=== PATIENT | male | born 1990 ===

== ENCOUNTER 2017-04-25 06:18 | Emergency (ER) | payer OTHER ==
[2017-04-25 06:18] VITALS: BMI 38.3
[2017-04-25 06:22] VITALS: BP 127/79; PULSE 113; RESP 16; TEMP 97.8; O2SAT 100
--- NOTE | 2017-04-25 07:33 | ED PDOC ---
HPI: General Adult Time Seen by Provider: 04/25/17 06:40 Chief Complaint (Nursing): Abnormal Skin Integrity Chief Complaint (Provider): Right pinky finger injury History Per: Patient History/Exam Limitations: no limitations Onset/Duration Of Symptoms: Hrs Additional Complaint(s): Patient is a 26 y/o male with no past medical history who presents to the ED complaining of right pinky finger injury. Patient reports he cut his finger last night at 22:00 (over 10 hours ago). Patient states he was drinking and cut his finger on the fridge. He currently denies any pain or bleeding. Past Medical History Reviewed: Historical Data, Nursing Documentation, Vital Signs Vital Signs: Last Vital Signs Temp 97.8 F 04/25/17 06:20 Pulse 113 H 04/25/17 06:20 Resp 16 04/25/17 06:20 BP 127/79 04/25/17 06:20 Pulse Ox 100 04/25/17 07:39 - Medical History PMH: Gall Bladder Disease - Surgical History Surgical History: No Surg Hx - Family History Family History: States: Unknown Family Hx - Social History Current smoker - smoking cessation education provided: Yes (< 10 cigarettes daily) Alcohol: Social Drugs: Denies - Home Medications Home Medications: Ambulatory Orders Medication Instructions Recorded Cephalexin [Keflex] 500 mg PO QID #28 capsule 04/25/17 - Allergies Allergies/Adverse Reactions: Allergies Allergy/AdvReac Type Severity Reaction Status Date / Time No Known Allergies Allergy Verified 05/23/16 11:20 Review of Systems ROS Statement: Except As Marked, All Systems Reviewed And Found Negative Musculoskeletal: Negative for: Other (pain/bleeding of right pinky finger) Skin: Positive for: Other (cut to right pinky finger) Physical Exam - Reviewed Nursing Documentation Reviewed: Yes Vital Signs Reviewed: Yes - Physical Exam Appears: Positive for: No Acute Distress Head Exam: Positive for: ATRAUMATIC, NORMOCEPHALIC Pulses-Radial (R): 2+ Extremity: Positive for: Normal ROM (fingers), Capillary Refill (less than 2 seconds), Other (Hand neurovasculature in tact, dorsam of finger has superficial flap of skin that is able to be lifted up (3cm by 2cm), no active bleeding) Neurologic/Psych: Positive for: Alert, Oriented (x3). Negative for: Motor/ Sensory Deficits - ECG O2 Sat by Pulse Oximetry: 100 (RA) Pulse Ox Interpretation: Normal Medical Decision Making Medical Decision Making: Cleaned wound with bacitracin and covered site of injury explained to pt that is unable to suture that given the 10 hour delay from time of injury and also that is flap instructed to keep area clean and covered and follow up with primary doctor for wound c heck Scribe Attestation: Documented by Sumi Mendiola, acting as a scribe for Jus Escobar MD Provider Scribe Attestation: All medical record entries made by the Scribe were at my direction and personally dictated by me. I have reviewed the chart and agree that the record accurately reflects my personal performance of the history, physical exam, medical decision making, and the department course for this patient. I have also personally directed, reviewed, and agree with the discharge instructions and disposition. Disposition - Clinical Impression Clinical Impression: Finger injury - Patient ED Disposition Is Patient to be Admitted: No Counseled Patient/Family Regarding: Studies Performed, Diagnosis, Need For Followup - Disposition Disposition: Routine/Home Disposition Time: 08:00 Condition: IMPROVED Additional Instructions: follow up with your primary doctor return to the ED with any worsening or concerning symptoms Prescriptions: Cephalexin [Keflex] 500 mg PO QID #28 capsule Instructions: Cephalexin (By mouth), Laceration (ED) Forms: [employer] (Persian)
== END 2017-04-25 07:05 | disposition home or self-care (01) ==
LOC: H.ER 06:18
DX: S61.216A Laceration without foreign body of right little finger without damage to nail, initial encounter (principal); W26.8XXA Contact with other sharp object(s), not elsewhere classified, initial encounter; Y92.89 Other specified places as the place of occurrence of the external cause